=== PATIENT | male | born 1990 | race Caucasian/White ===

== ENCOUNTER 2017-07-31 17:15 | Emergency (ER) | payer OTHER ==
--- NOTE | 2017-07-31 18:03 | EDM.PDOC ---
ED HPI GENERAL MEDICAL PROBLEM - General Chief Complaint: Genitourinary Problem Stated Complaint: GROIN PAIN Time Seen by Provider: 07/31/17 17:53 Source of Information: Reports: Patient History Limitations: Reports: No Limitations - History of Present Illness INITIAL COMMENTS - FREE TEXT/NARRATIVE: 26-year-old male presents for evaluation and treatment of pain to the right testicle. Patient reports yesterday he was sledding with his family. States that he jumped onto a slide, on his belly. He states that he had immediate pain and discomfort to his testicles. Reports today that he appreciated abnormalities to the right testicle. He has not had any urinary symptoms, no hematuria. States that he is appreciated abnormalities to the right testicle and feels it is slightly swollen. Perineal Area Pain Score (Numeric/FACES): 3 - Related Data Allergies Allergy/AdvReac Type Severity Reaction Status Date / Time No Known Allergies Allergy Verified 07/31/17 17:25 Home Meds: Home Meds . [No Known Home Meds] 07/31/17 [History] Past Medical History - Past Health History Medical/Surgical History: Denies Medical/Surgical History Musculoskeletal History: Reports: Fracture Other Musculoskeletal History: bilateral leg fractures and left arm fracture - Past Surgical History GI Surgical History: Reports: Appendectomy Social & Family History - Family History Family Medical History: Noncontributory - Tobacco Use Smoking Status *Q: Never Smoker - Recreational Drug Use Recreational Drug Use: No ED ROS GENERAL - Review of Systems Review Of Systems: See Below : Reports: Other (right testicular pain and deformity, minor swelling). Denies: Hematuria ED EXAM, RENAL/ - Physical Exam Exam: See Below Exam Limited By: No Limitations General Appearance: Alert, WD/WN, No Apparent Distress Respiratory/Chest: No Respiratory Distress, Lungs Clear, Normal Breath Sounds Cardiovascular: Normal Peripheral Pulses, Regular Rate, Rhythm, No Murmur (Male) Exam: Circumcised, Scrotal Swelling (minimal to the right), Testicular Tenderness (R), Other (several palpable areas to theright scrotum, possibly hematomas) Neurological: Alert, Oriented, Normal Cognition Psychiatric: Normal Affect, Normal Mood Skin Exam: Warm, Dry, Normal Color Course - Vital Signs Last Recorded V/S: Last Vital Signs Temp 37.3 C 07/31/17 17:22 Pulse 95 07/31/17 17:22 Resp 16 01/08/18 17:22 BP 131/68 07/31/17 17:22 Pulse Ox 99 07/31/17 17:22 - Orders/Labs/Meds Labs: Laboratory Tests 07/31/17 Range/Units 18:23 Urine Color Yellow (Yellow) Urine Appearance Clear (Clear) Urine pH 6.0 (5.0-8.0) Ur Specific [place] 1.015 (1.005-1.030) Urine Protein Negative (Negative) Urine Glucose (UA) Negative (Negative) Urine Ketones Negative (Negative) Urine Occult Blood Negative (Negative) Urine Nitrite Negative (Negative) Urine Bilirubin Negative (Negative) Urine Urobilinogen 0.2 (0.2-1.0) Ur Leukocyte Esterase Negative (Negative) Urine RBC 0-5 (0-5) /hpf Urine WBC 0-5 (0-5) /hpf Ur Epithelial Cells 0-5 (0-5) /hpf Urine Bacteria Rare (FEW) /hpf Urine Mucus Not seen (FEW) /hpf - Radiology Interpretation Free Text/Narrative:: Testicular ultrasound: Multiple real-time images of the testicles were obtained. Right testicle shows more vascularity than the left testicle. Both arterial and venous blood flow is seen within the testicles. Small cyst is noted within the epididymis on the left side measuring 6 mm. Small amount of fluid is seen around both testicles which is incidental. Measurements: Right testicle: 4.9 x 2.9 x 3.1 cm Left testicle: 4.8 x 2.5 x 3.3 cm. Impression: 1. Increased vascularity to the right testicle as compared to the left testicle. Mild right-sided orchitis is possible, given the history of trauma this may be trauma related. 2. Small epididymal cyst noted on the left side which is incidental. Minimal fluid around the testicles which is incidental. 3. No additional abnormality is noted on testicular ultrasound. No evidence of disruption within either testicle. - Re-Assessments/Exams Free Text/Narrative Re-Assessment/Exam: 07/31/17 20:07 I reviewed the UA and ultrasound results with the patient. Tylenol, Motrin and ice as tolerated. Follow-up with your primary care provider for symptoms do not improve within a week. Discharge instructions as documented. Departure - Departure Time of Disposition: 20:07 Disposition: Home, Self-Care Clinical Impression: Pain in testicle due to trauma - Discharge Information Instructions: Scrotal Swelling Referrals: PCP,None [Primary Care Provider] - Chaparro Jade Jr, MD [Ordering Only Provider] - Forms: ED Department Discharge Additional Instructions: [id number] Tylenol or Motrin as needed for pain. Ice the area for 5-10 minutes as tolerated. Follow up with your primary care provider if your symptoms do not improve much within 1 week. Please return to ER if your symptoms change or worsen.
--- NOTE | 2017-07-31 19:20 | US ---
Testicular ultrasound: Multiple real-time images of the testicles were obtained. Right testicle shows more vascularity than the left testicle. Both arterial and venous blood flow is seen within the testicles. Small cyst is noted within the epididymis on the left side measuring 6 mm. Small amount of fluid is seen around both testicles which is incidental. Measurements: Right testicle: 4.9 x 2.9 x 3.1 cm Left testicle: 4.8 x 2.5 x 3.3 cm. Impression: 1. Increased vascularity to the right testicle as compared to the left testicle. Mild right-sided orchitis is possible, given the history of trauma this may be trauma related. 2. Small epididymal cyst noted on the left side which is incidental. Minimal fluid around the testicles which is incidental. 3. No additional abnormality is noted on testicular ultrasound. No evidence of disruption within either testicle. Diagnostic code #3
== END 2017-07-31 20:18 | disposition home or self-care (01) ==
LOC: JD.ED 17:15
DX: G89.11 Acute pain due to trauma (principal); N50.811 Right testicular pain; V00.221A Fall from sled, initial encounter
CPT/HCPCS: 76870; 76870-26; 81001; 93975; 99283; 99284-25